=== PATIENT | female | born 1940 | race Caucasian/White ===

== ENCOUNTER 2022-04-27 16:18 | Emergency (ER) | payer MEDICARE ==
[~2022-04-27] VITALS: Ht 167.6 cm; Wt 61.2 kg
--- NOTE | 2022-04-27 19:28 | NUR ---
1625 BIB RA 878 FROM HOME, BACK PAIN SINCE SHE GOT UP FROM BED THIS MORNING,NO TRAUMA, AMBULATORY ON SCENE. PT A/OX4. TOLERATING R/A WELL WITH NO RESP DISTRESS. SAFETY MEASURES IN PLACE.
--- NOTE | 2022-04-27 19:50 | NUR ---
IV MODESTO INSERTED ON RIGHT FA G20. BLOOD DRAWN AND SENT TO LAB
[2022-04-27] MEDS ORDERED: MORPHINE SULFATE INJ 4 MG/ML DISP.SYRIN ONE (19:52)
[2022-04-27] MEDS ORDERED: ONDANSETRON HCL/PF 4 MG/2 ML VIAL ONE (19:52)
--- NOTE | 2022-04-27 19:57 | NUR ---
MORPHINE 4 MG IV PUSH GIVEN FOR BACK PAIN
[2022-04-27] MEDS ORDERED: IV NS 0.9% 1,000 ML BAG IV ONE (20:00)
[2022-04-27] MEDS ORDERED: ONDANSETRON HCL/PF 4 MG/2 ML VIAL IVP ONE (20:00)
[2022-04-27] MEDS ORDERED: MORPHINE SULFATE INJ 2 MG/ML DISP.SYRIN IV ONE (20:00)
[2022-04-27 20:06] LABS: BASOPHILS # (AUTO) 0.1 K/uL (0.0-0.2); BASOPHILS % (AUTO) 0.6 % (0.0-2.0); EOSINOPHILS % (AUTO) 1.3 % (0.0-6.0); HEMATOCRIT 47 % (33-45); HEMOGLOBIN 15.6 g/dL (11.5-14.8); LYMPHOCYTES # (AUTO) 3.8 K/uL (0.8-4.8); LYMPHOCYTES % (AUTO) 35.6 % (20.0-44.0); MEAN CORPUSCULAR HGB CONC 33 g/dl (31.0-36.0); MEAN CORPUSCULAR VOLUME 91 fL (82-100); MONOCYTES # (AUTO) 0.5 K/uL (0.1-1.30); MONOCYTES % (AUTO) 4.5 % (2.0-12.0); NEUTROPHILS # (AUTO) 6.2 K/uL (1.8-8.9); PLATELET COUNT (AUTO) 246 K/uL (150-450); RED BLOOD CELL COUNT(AUTO) 5.19 MIL/uL (4.0-5.2); WHITE BLOOD COUNT (AUTO) 10.6 K/uL (4.3-11.0)
[2022-04-27 20:20] LABS: ALBUMIN 4.5 g/dL (3.4-5.0); BILIRUBIN,DIRECT 0.2 mg/dL (0.0-0.2); BILIRUBIN,TOTAL 0.6 mg/dL (0.2-1.0); CREATININE 0.8 mg/dL (0.6-1.3); POTASSIUM 3.9 mmol/L (3.5-5.1); TOTAL PROTEIN, SERUM 8.5 g/dL (6.4-8.2)
--- NOTE | 2022-04-27 21:19 | NUR ---
PT TAKEN TO CT VIA [facility]
--- NOTE | 2022-04-27 21:23 | NUR ---
PT RETURNED TO ER BED [address]
[2022-04-27 22:49] LABS: BILIRUBIN,URINE NEGATIVE (NEGATIVE); COLOR,URINE OTHER (YELLOW); LEUKOCYTE ESTERASE ,URINE NEGATIVE (NEGATIVE); NITRITE, URINE NEGATIVE (NEGATIVE); PROTEIN,URINE NEGATIVE (NEGATIVE); UGLUCOSE NEGATIVE (NEGATIVE); UROBILINOGEN,URINE 0.2 EU/dL (0.2)
[2022-04-27] MEDS ORDERED: CIPROFLOXACIN HCL 500 MG TABLET ONE (22:56)
[2022-04-27] MEDS ORDERED: METRONIDAZOLE 500 MG TABLET ONE (22:57)
[2022-04-27] MEDS ORDERED: CIPROFLOXACIN HCL 500 MG TABLET PO ONE (23:00)
[2022-04-27] MEDS ORDERED: METRONIDAZOLE 500 MG TABLET PO ONE (23:00)
[2022-04-27] MEDS ORDERED: METR500T PO (23:10)
[2022-04-27] MEDS ORDERED: CIPR-262 PO (23:10)
[2022-04-27] MEDS ORDERED: TRAM50TA2 PO (23:10)
[2022-04-27] MEDS ORDERED: IBUP-1955 PO (23:10)
--- NOTE | 2022-04-27 23:25 | NUR ---
Patient discharged to home in stable condition. RX Written and verbal after care instructions given. Patient verbalizes understanding of instruction. IV removed. Catheter intact and site benign. Pressure and 4x4 applied to site. No bleeding noted.
[2022-04-27 23:43] LABS: BACTERIA,URINE Rare /HPF (None Seen); RBC,URINE 0-2 /HPF (0-2); SQUAMOUS EPITHELIAL CELL,UR Few /HPF (None Seen)
[2022-04-28 00:59] VITALS: BP 168/75
== END 2022-04-28 01:00 | disposition home or self-care (01) ==
LOC: ER 16:18
DX: M54.50 Low back pain, unspecified (principal); G89.29 Other chronic pain; I10 Essential (primary) hypertension; K52.9 Noninfective gastroenteritis and colitis, unspecified
CPT/HCPCS: 99285; 74176; 96374; 96361; 96375; 93005 ×2; 85025; 80048; 83690; 80076; 81001; 36415; 84484; J2270; J2405; J7030